=== PATIENT | female | born 1965 | race Caucasian/White ===

== ENCOUNTER 2016-11-27 08:26 | Emergency (ER) | payer OTHER ==
[~2016-11-27] VITALS: Ht 165.1 cm; Wt 81.6 kg
--- NOTE | ~2016-11-27 | EKG ---
[place], [place] ELECTROCARDIOGRAM REPORT NAME: OLGA LIDIA HANKS UNIT #: [id number] ROOM: DOCTOR: ODALIS NULL MD BIRTHDATE: [birth year] DOS: 11/27/2016 ____ FINDINGS: 1. Normal sinus rhythm. 2. Leftward axis. 3. Nonspecific ST-T wave changes. ODALIS NULL MD CM:EKGRPT:ELECTROCARDIOGRAM REPORT [id number] ODALIS NULL MD
[~2016-11-27 08:26] MED LIST: CLARITIN10 MG PO; FIORICET 325 MG1 TAB PO; PERCOCET 325 MG1 TA2 PO; PRILOSEC40 M1 PO; Synthroid,Levo50 MCG PO; TRIMOX500 MG PO; ZOFRAN ODT4 MG SL; ZOFRAN4 MG PO
[2016-11-27 09:27] LABS: BASO % 0.5 % (0.0-1.0); EOS # 0.2 10*3/uL (0.0-0.4); EOS % 1.9 % (1.0-4.0); HEMATOCRIT 37.3 % (37.0-47.0); HEMOGLOBIN 13.1 g/dl (12.0-16.0); LYMPH # 1.9 10*3/uL (1.3-4.4); LYMPH % 23.1 % (27.0-41.0); MEAN CORPUSCULAR HGB CONC 35.1 g/dl (33.0-37.0); MEAN PLATELET VOLUME 9.2 fl (9.6-12.3); MONO # 0.4 10*3/uL (0.1-1.0); MONO % 5.1 % (3.0-9.0); NEUT # 5.6 10*3/uL (2.3-7.9); PLATELET COUNT AUTOMATED 294 10*3/uL (130-400); RED BLOOD COUNT 3.97 10*6/uL (4.10-5.10); RED CELL DISTRI WIDTH 14.9 % (0-14.5); WHITE BLOOD COUNT 8.1 10*3/uL (4.8-10.8)
[2016-11-27 09:36] LABS: INTERNATIONAL NORM RATIO 0.9 (2.0-3.5); PROTHROMBIN TIME 9.8 SECONDS (9.0-12.4)
[2016-11-27 09:42] LABS: ALBUMIN 3.3 gm/dl (3.1-4.5); ALKALINE PHOSPHATASE 96 U/L (45-117); BILIRUBIN, TOTAL 0.6 mg/dl (0.2-1.0); BUN 10 mg/dl (7-24); C-REACTIVE PROTEIN 1.47 MG/DL (0-0.3); CARBON DIOXIDE 24 mmol/L (21-32); CHLORIDE 110 mmol/L (98-107); CPK 35 U/L (26-192); EST GLOM FILT AFRICAN AMERICAN > 60 ml/min; GLUCOSE 96 mg/dL (65-99); POTASSIUM 3.9 mmol/L (3.5-5.1); SGOT/AST 14 IU/L (3-35); SGPT/ALT 18 U/L (12-78); SODIUM 142 mmol/L (136-145); TOTAL PROTEIN 6.8 gm/dL (6.4-8.2)
[2016-11-27 09:51] LABS: CKMB < 0.5 ng/ml (0.5-3.6); TROPONIN I < 0.015 ng/ml (<0.045)
[2016-11-27 13:26] LABS: HEMATOCRIT 39.2 % (37.0-47.0); HEMOGLOBIN 12.8 g/dl (12.0-16.0)
== END 2016-11-27 14:30 | disposition home or self-care (01) ==
LOC: ED 08:26
PROVIDERS: Emergency Medicine
DX: N93.9 Abnormal uterine and vaginal bleeding, unspecified (principal); R06.02 Shortness of breath; R42 Dizziness and giddiness; G43.909 Migraine, unspecified, not intractable, without status migrainosus; Z79.899 Other long term (current) drug therapy

== ENCOUNTER 2016-12-03 17:27 | Emergency (ER) | payer OTHER ==
[~2016-12-03] VITALS: Ht 165.1 cm; Wt 81.6 kg
[2016-12-03] MEDS ORDERED: NORETHINDRONE AC5 MG PO (17:34)
[2016-12-03 18:14] LABS: BASO # 0.1 10*3/uL (0.0-0.1); BASO % 0.5 % (0.0-1.0); EOS # 0.1 10*3/uL (0.0-0.4); EOS % 0.8 % (1.0-4.0); HEMATOCRIT 34.7 % (37.0-47.0); HEMOGLOBIN 12.5 g/dl (12.0-16.0); LYMPH # 2.5 10*3/uL (1.3-4.4); LYMPH % 23.6 % (27.0-41.0); MEAN CELL VOLUME 95.3 fl (81.0-99.0); MEAN CORPUSCULAR HGB 34.3 pg (27.0-31.0); MEAN PLATELET VOLUME 9.8 fl (9.6-12.3); MONO # 0.6 10*3/uL (0.1-1.0); NEUT # 7.4 10*3/uL (2.3-7.9); NEUT % 68.8 % (47.0-73.0); PLATELET COUNT AUTOMATED 334 10*3/uL (130-400); RED BLOOD COUNT 3.64 10*6/uL (4.10-5.10); RED CELL DISTRI WIDTH 15.7 % (0-14.5); WHITE BLOOD COUNT 10.7 10*3/uL (4.8-10.8)
== END 2016-12-04 01:02 | disposition home or self-care (01) ==
LOC: ED 17:27
PROVIDERS: Registered Nurse
DX: R42 Dizziness and giddiness (principal)

== ENCOUNTER 2018-12-15 12:14 | Emergency (ER) | payer OTHER ==
[~2018-12-15] VITALS: Ht 167.6 cm; Wt 83.0 kg
[~2018-12-15 12:14] MED LIST changes: +NORETHINDRONE AC5 MG PO; +PRILOSEC20 M1 PO
[2018-12-15] MEDS ORDERED: PREDNISONE50 MG PO (12:39)
[2018-12-15] MEDS ORDERED: CYCLOBENZAPRINE10 MG PO (12:39)
== END 2018-12-15 14:50 | disposition home or self-care (01) ==
LOC: ED 12:14
DX: S16.1XXA Strain of muscle, fascia and tendon at neck level, initial encounter (principal); M54.5 Low back pain; G43.909 Migraine, unspecified, not intractable, without status migrainosus; Z79.899 Other long term (current) drug therapy; Y93.I9 Activity, other involving external motion; V87.7XXA Person injured in collision between other specified motor vehicles (traffic), initial encounter; Y92.488 Other paved roadways as the place of occurrence of the external cause; Y99.8 Other external cause status

== ENCOUNTER → 2019-07-15 | Outpatient (CLI) | payer OTHER ==
[~2019-07-15] MED LIST changes: +CYCLOBENZAPRINE10 MG PO; +PREDNISONE50 MG PO
== END | disposition home or self-care (01) ==
LOC: RESCLI 01:35
DX: E03.9 Hypothyroidism, unspecified (principal); Z71.89 Other specified counseling; J30.2 Other seasonal allergic rhinitis; E56.9 Vitamin deficiency, unspecified; K21.9 Gastro-esophageal reflux disease without esophagitis; Z79.899 Other long term (current) drug therapy

== ENCOUNTER → 2019-07-16 | Outpatient (CLI) | payer OTHER ==
[2019-07-16 07:53] LABS: BASO % 0.4 % (0.0-1.0); EOS # 0.1 10*3/uL (0.0-0.4); EOS % 1.9 % (1.0-4.0); HEMATOCRIT 42.2 % (37.0-47.0); HEMOGLOBIN 14.5 g/dl (12.0-16.0); LYMPH # 2.2 10*3/uL (1.3-4.4); LYMPH % 31.7 % (27.0-41.0); MEAN CELL VOLUME 92.7 fl (81.0-99.0); MEAN CORPUSCULAR HGB 31.9 pg (27.0-31.0); MEAN CORPUSCULAR HGB CONC 34.4 g/dl (33.0-37.0); MEAN PLATELET VOLUME 9.3 fl (9.6-12.3); MONO # 0.5 10*3/uL (0.1-1.0); MONO % 7.1 % (3.0-9.0); NEUT # 4.1 10*3/uL (2.3-7.9); NEUT % 58.8 % (47.0-73.0); PLATELET COUNT AUTOMATED 300 10*3/uL (130-400); RED BLOOD COUNT 4.55 10*6/uL (4.10-5.10); RED CELL DISTRI WIDTH 15.2 % (0-14.5); WHITE BLOOD COUNT 6.9 10*3/uL (4.8-10.8)
[2019-07-16 08:13] LABS: BUN 18 mg/dl (7-24); CHLORIDE 108 mmol/L (98-107); POTASSIUM 4.1 mmol/L (3.5-5.1); SODIUM 141 mmol/L (136-145)
[2019-07-16 08:26] LABS: ALKALINE PHOSPHATASE 116 U/L (45-117); CHOLESTEROL 173 mg/dL (<200); CREATININE 0.99 mg/dL (0.55-1.02); HDL CHOLESTEROL 46 mg/dl (40-60); LDL CHOLESTEROL 108 mg/dL (9-159); SGOT/AST 10 IU/L (3-35); SGPT/ALT 18 U/L (12-78); TOTAL PROTEIN 7.6 gm/dL (6.4-8.2); TRIGLYCERIDES 93 mg/dl (<150); VLDL CHOLESTEROL 19 mg/dL (6-40)
== END | disposition home or self-care (01) ==
LOC: LAB 05:27
PROVIDERS: Internal Medicine
DX: E03.9 Hypothyroidism, unspecified (principal); Z71.89 Other specified counseling

== ENCOUNTER → 2019-08-24 | Outpatient (CLI) | payer OTHER | END | disposition home or self-care (01) | LOC: US 00:50 | DX: R92.2 Inconclusive mammogram (principal) ==

== ENCOUNTER → 2019-12-08 | Outpatient (CLI) | payer OTHER | END | disposition home or self-care (01) | LOC: RESCLI 00:26 | DX: K21.9 Gastro-esophageal reflux disease without esophagitis (principal); J30.2 Other seasonal allergic rhinitis; E03.9 Hypothyroidism, unspecified; E53.8 Deficiency of other specified B group vitamins; E66.9 Obesity, unspecified; R06.2 Wheezing; R01.1 Cardiac murmur, unspecified; Z85.828 Personal history of other malignant neoplasm of skin; Z13.21 Encounter for screening for nutritional disorder; Z68.30 Body mass index [BMI] 30.0-30.9, adult; Z98.890 Other specified postprocedural states; Z79.899 Other long term (current) drug therapy ==

== ENCOUNTER → 2019-12-12 | Outpatient (CLI) | payer OTHER | END | disposition home or self-care (01) | LOC: CARD 01:28 | DX: R01.1 Cardiac murmur, unspecified (principal) ==

== ENCOUNTER → 2019-12-26 | Outpatient (CLI) | payer OTHER | END | disposition home or self-care (01) | LOC: RAD 11:04 | DX: M17.12 Unilateral primary osteoarthritis, left knee (principal); R60.9 Edema, unspecified ==

== ENCOUNTER → 2020-01-17 | Outpatient (CLI) | payer OTHER ==
[2020-01-17 13:57] LABS: CLARITY SL CLOUDY (CLEAR); COLOR YELLOW (YELLOW)
[2020-01-17 14:05] LABS: BACTERIA 2+; BILIRUBIN NEGATIVE (NEGATIVE); BLOOD 3+ (NEGATIVE); GLUCOSE NEGATIVE (NEGATIVE); KETONE NEGATIVE (NEGATIVE); LEUKO ESTERASE 2+ (NEGATIVE); MUCOUS 1+; NITRITE NEGATIVE (NEGATIVE); RBC TNTC rbc/hpf (0-2); UROBILINOGEN 0.2 E.U./dl (0.2-1.0); WBC 41-50 wbc/hpf (0-5)
== END | disposition home or self-care (01) ==
LOC: LAB 12:45
PROVIDERS: Student in an Organized Health Care Education/Training Program
DX: R39.9 Unspecified symptoms and signs involving the genitourinary system (principal)

== ENCOUNTER → 2020-03-05 | Outpatient (CLI) | payer OTHER | END | disposition home or self-care (01) | LOC: MAMMO 00:46 | PROVIDERS: ATTEND Internal Medicine Nephrology | DX: Z12.31 Encounter for screening mammogram for malignant neoplasm of breast (principal); R01.1 Cardiac murmur, unspecified ==

== ENCOUNTER → 2020-07-05 | Outpatient (CLI) | payer OTHER | END | disposition home or self-care (01) | LOC: RESCLI 11:06 | PROVIDERS: ATTEND Internal Medicine Nephrology | DX: R06.2 Wheezing (principal); J30.2 Other seasonal allergic rhinitis; K21.9 Gastro-esophageal reflux disease without esophagitis; E53.8 Deficiency of other specified B group vitamins; E03.9 Hypothyroidism, unspecified; E55.9 Vitamin D deficiency, unspecified; Z79.899 Other long term (current) drug therapy ==

== ENCOUNTER → 2020-07-09 | Outpatient (CLI) | payer OTHER ==
[2020-07-09 07:55] LABS: BASO % 0.5 % (0.0-1.0); EOS # 0.2 10*3/uL (0.0-0.4); EOS % 2.5 % (1.0-4.0); HEMATOCRIT 43.1 % (37.0-47.0); LYMPH # 2.4 10*3/uL (1.3-4.4); LYMPH % 37.2 % (27.0-41.0); MEAN CELL VOLUME 94.1 fl (81.0-99.0); MEAN CORPUSCULAR HGB 32.8 pg (27.0-31.0); MEAN CORPUSCULAR HGB CONC 34.8 g/dl (33.0-37.0); MEAN PLATELET VOLUME 9.2 fl (9.6-12.3); MONO # 0.4 10*3/uL (0.1-1.0); MONO % 5.9 % (3.0-9.0); NEUT # 3.5 10*3/uL (2.3-7.9); NEUT % 53.7 % (47.0-73.0); PLATELET COUNT AUTOMATED 301 10*3/uL (130-400); RED BLOOD COUNT 4.58 10*6/uL (4.10-5.10); RED CELL DISTRI WIDTH 15.8 % (0-14.5); WHITE BLOOD COUNT 6.4 10*3/uL (4.8-10.8)
[2020-07-09 08:32] LABS: CHLORIDE 107 mmol/L (98-107); POTASSIUM 4.2 mmol/L (3.5-5.1); SODIUM 140 mmol/L (136-145)
[2020-07-09 08:40] LABS: VITAMIN D, 25-HYDROXY 22.8 ng/mL (30-100)
[2020-07-09 08:52] LABS: ALBUMIN 3.7 gm/dl (3.1-4.5); ALKALINE PHOSPHATASE 115 U/L (45-117); BUN 21 mg/dl (7-24); CHOLESTEROL 181 mg/dL (<200); CREATININE 0.93 mg/dL (0.55-1.02); HDL CHOLESTEROL 54 mg/dl (40-60); LDL CHOLESTEROL 105 mg/dL (9-159); SGOT/AST 24 IU/L (3-35); SGPT/ALT 29 U/L (12-78); TOTAL PROTEIN 7.6 gm/dL (6.4-8.2); TRIGLYCERIDES 110 mg/dl (<150); VLDL CHOLESTEROL 22 mg/dL (6-40)
[2020-07-09 09:23] LABS: FREE T4 1.07 ng/dl (0.76-1.46)
== END | disposition home or self-care (01) ==
LOC: LAB 00:12
PROVIDERS: ATTEND Student in an Organized Health Care Education/Training Program
DX: Z00.00 Encounter for general adult medical examination without abnormal findings (principal); E03.9 Hypothyroidism, unspecified; J30.2 Other seasonal allergic rhinitis; K21.9 Gastro-esophageal reflux disease without esophagitis; E55.9 Vitamin D deficiency, unspecified; E53.8 Deficiency of other specified B group vitamins; Z79.899 Other long term (current) drug therapy

== ENCOUNTER → 2020-07-19 | Outpatient (CLI) | payer OTHER | END | disposition home or self-care (01) | LOC: RAD 07:53 | PROVIDERS: ATTEND Internal Medicine Nephrology | DX: R06.2 Wheezing (principal) ==

== ENCOUNTER → 2020-11-21 | Outpatient (CLI) | payer OTHER ==
[2020-11-21 12:47] LABS: BILIRUBIN Negative (Negative); BLOOD Trace-Lysed (Negative); CLARITY Cloudy (Clear); COLOR Yellow (Yellow); GLUCOSE Negative (Negative); KETONE Negative (Negative); LEUKO ESTERASE 3+ (Negative); NITRITE Negative (Negative); PH 6.5 (4.5-8.0)
[2020-11-21 13:02] LABS: WBC TNTC wbc/hpf (0-5)
[2020-11-21 13:03] LABS: BACTERIA 3+
== END | disposition home or self-care (01) ==
LOC: LAB 12:04
PROVIDERS: Student in an Organized Health Care Education/Training Program; ATTEND Internal Medicine Nephrology
DX: N39.0 Urinary tract infection, site not specified (principal)

== ENCOUNTER 2020-12-17 12:02 | Emergency (ER) | payer OTHER ==
[~2020-12-17] VITALS: Ht 167.6 cm; Wt 88.5 kg
[2020-12-17 12:42] LABS: BASO % 0.3 % (0.0-1.0); EOS # 0.1 10*3/uL (0.0-0.4); EOS % 1.4 % (1.0-4.0); HEMATOCRIT 44.4 % (37.0-47.0); LYMPH # 1.7 10*3/uL (1.3-4.4); LYMPH % 26.4 % (27.0-41.0); MEAN CELL VOLUME 89.3 fl (81.0-99.0); MEAN CORPUSCULAR HGB 29.2 pg (27.0-31.0); MEAN CORPUSCULAR HGB CONC 32.7 g/dl (33.0-37.0); MEAN PLATELET VOLUME 8.7 fl (9.6-12.3); MONO # 0.4 10*3/uL (0.1-1.0); MONO % 5.9 % (3.0-9.0); NEUT # 4.3 10*3/uL (2.3-7.9); NEUT % 65.7 % (47.0-73.0); PLATELET COUNT AUTOMATED 281 10*3/uL (130-400); RED BLOOD COUNT 4.97 10*6/uL (4.10-5.10); RED CELL DISTRI WIDTH 13.4 % (0-14.5); WHITE BLOOD COUNT 6.6 10*3/uL (4.8-10.8)
[2020-12-17 12:59] LABS: ALBUMIN 3.7 gm/dl (3.1-4.5); ALKALINE PHOSPHATASE 110 U/L (45-117); BUN 15 mg/dl (7-24); CHLORIDE 108 mmol/L (98-107); POTASSIUM 3.8 mmol/L (3.5-5.1); SGOT/AST 13 IU/L (3-35); SGPT/ALT 22 U/L (12-78); SODIUM 140 mmol/L (136-145); TOTAL PROTEIN 7.6 gm/dL (6.4-8.2)
[2020-12-17 13:00] LABS: TROPONIN I < 0.015 ng/ml (<0.045)
[2020-12-17 13:29] LABS: BILIRUBIN Negative (Negative); BLOOD Negative (Negative); CLARITY Clear (Clear); COLOR Yellow (Yellow); GLUCOSE Negative (Negative); KETONE Negative (Negative); LEUKO ESTERASE Negative (Negative); NITRITE Negative (Negative); SPECIFIC GRAVITY <= 1.005 (1.001-1.030)
== END 2020-12-17 20:04 | disposition home or self-care (01) ==
LOC: ED 12:02
PROVIDERS: Physician Assistant
DX: R07.9 Chest pain, unspecified (principal); Z79.899 Other long term (current) drug therapy

== ENCOUNTER 2021-01-03 17:45 | Emergency (ER) | payer OTHER ==
[~2021-01-03] VITALS: Wt 87.1 kg
== END 2021-01-03 18:52 | disposition home or self-care (01) ==
LOC: ED 17:45
DX: M79.671 Pain in right foot (principal); Z79.899 Other long term (current) drug therapy

== ENCOUNTER → 2021-07-25 | Outpatient (CLI) | payer OTHER | END | disposition home or self-care (01) | LOC: MAMMO 00:15 | PROVIDERS: ATTEND Nurse Practitioner Women's Health | DX: Z12.31 Encounter for screening mammogram for malignant neoplasm of breast (principal) ==

== ENCOUNTER → 2021-08-12 | Outpatient (CLI) | payer OTHER ==
[2021-08-12 16:52] LABS: VITAMIN D, 25-HYDROXY 23.4 ng/mL (30-100)
== END | disposition home or self-care (01) ==
LOC: RESCLI 00:29
PROVIDERS: ATTEND Internal Medicine Nephrology
DX: E03.9 Hypothyroidism, unspecified (principal); E53.8 Deficiency of other specified B group vitamins; J30.2 Other seasonal allergic rhinitis; K21.9 Gastro-esophageal reflux disease without esophagitis; R06.2 Wheezing; E66.9 Obesity, unspecified; E55.9 Vitamin D deficiency, unspecified; Z12.11 Encounter for screening for malignant neoplasm of colon; Z79.899 Other long term (current) drug therapy; Z90.710 Acquired absence of both cervix and uterus; Z98.890 Other specified postprocedural states

== ENCOUNTER 2021-09-04 07:16 | Emergency (ER) | payer OTHER ==
[~2021-09-04] VITALS: Wt 90.7 kg
[2021-09-04] MEDS ORDERED: CYCLOBENZAPRINE10 MG PO (07:44)
[2021-09-04] MEDS ORDERED: PREDNISONE50 MG PO (07:44)
== END 2021-09-04 08:00 | disposition home or self-care (01) ==
LOC: ED 07:16
DX: M54.41 Lumbago with sciatica, right side (principal); M54.42 Lumbago with sciatica, left side; Z79.899 Other long term (current) drug therapy

== ENCOUNTER → 2021-09-06 | Outpatient (CLI) | payer OTHER ==
[2021-09-06 10:55] LABS: BUN 21 mg/dl (7-24); CHLORIDE 110 mmol/L (98-107); CREATININE 0.96 mg/dL (0.55-1.02); SODIUM 141 mmol/L (136-145)
[2021-09-06 11:54] LABS: BILIRUBIN Negative (Negative); BLOOD Negative (Negative); CLARITY Clear (Clear); COLOR Yellow (Yellow); GLUCOSE Negative (Negative); KETONE Negative (Negative); LEUKO ESTERASE 1+ (Negative); NITRITE Negative (Negative); PH 5.5 (4.5-8.0); SPECIFIC GRAVITY 1.025 (1.001-1.030); UROBILINOGEN 0.2 E.U./dl (0.0-1.0)
[2021-09-06 13:32] LABS: MUCOUS TRACE
== END | disposition home or self-care (01) ==
LOC: LAB 10:22
PROVIDERS: Student in an Organized Health Care Education/Training Program; ATTEND Internal Medicine
DX: N20.0 Calculus of kidney (principal)

== ENCOUNTER → 2021-09-09 | Outpatient (CLI) | payer OTHER | END | disposition home or self-care (01) | LOC: CT 00:08 | PROVIDERS: ATTEND Internal Medicine Nephrology | DX: N20.0 Calculus of kidney (principal); R16.1 Splenomegaly, not elsewhere classified ==

== ENCOUNTER → 2021-09-17 | Outpatient (CLI) | payer OTHER ==
[2021-09-17 15:47] LABS: BASO % 0.3 % (0.0-1.0); EOS # 0.1 10*3/uL (0.0-0.4); EOS % 1.2 % (1.0-4.0); HEMATOCRIT 46.7 % (37.0-47.0); LYMPH # 1.9 10*3/uL (1.3-4.4); LYMPH % 19.4 % (27.0-41.0); MEAN CELL VOLUME 88.6 fl (81.0-99.0); MEAN CORPUSCULAR HGB CONC 32.8 g/dl (33.0-37.0); MEAN PLATELET VOLUME 8.7 fl (9.6-12.3); MONO # 0.5 10*3/uL (0.1-1.0); NEUT # 7.2 10*3/uL (2.3-7.9); NEUT % 73.9 % (47.0-73.0); PLATELET COUNT AUTOMATED 318 10*3/uL (130-400); RED BLOOD COUNT 5.27 10*6/uL (4.10-5.10); RED CELL DISTRI WIDTH 13.6 % (0-14.5); WHITE BLOOD COUNT 9.8 10*3/uL (4.8-10.8)
== END | disposition home or self-care (01) ==
LOC: RESCLI 06:44
PROVIDERS: Internal Medicine; ATTEND Internal Medicine
DX: R16.2 Hepatomegaly with splenomegaly, not elsewhere classified (principal); K21.9 Gastro-esophageal reflux disease without esophagitis; E03.9 Hypothyroidism, unspecified; Z79.899 Other long term (current) drug therapy

== ENCOUNTER → 2022-01-02 | Day surgery (SDC) | payer OTHER ==
[~2022-01-02] VITALS: Ht 167.6 cm; Wt 90.7 kg
[2022-01-02 07:33] VITALS: BP 115/66
[2022-01-02 08:30] VITALS: BP 108/50
[2022-01-02 08:45] VITALS: BP 111/54
[2022-01-02 09:00] VITALS: BP 102/57
== END | disposition home or self-care (01) ==
LOC: SDC 12-30 09:30
PROVIDERS: ATTEND Surgery
DX: Z12.11 Encounter for screening for malignant neoplasm of colon (principal); K57.30 Diverticulosis of large intestine without perforation or abscess without bleeding; Z86.010 Personal history of colon polyps; E03.9 Hypothyroidism, unspecified; G43.909 Migraine, unspecified, not intractable, without status migrainosus; Z79.899 Other long term (current) drug therapy

== ENCOUNTER → 2022-03-12 | Outpatient (CLI) | payer OTHER | END | disposition home or self-care (01) | LOC: RESCLI 11:33 | PROVIDERS: ATTEND Student in an Organized Health Care Education/Training Program | DX: K21.9 Gastro-esophageal reflux disease without esophagitis (principal); J30.2 Other seasonal allergic rhinitis; L98.9 Disorder of the skin and subcutaneous tissue, unspecified; E03.9 Hypothyroidism, unspecified; Z79.899 Other long term (current) drug therapy ==

== ENCOUNTER 2022-03-18 04:17 | Inpatient (IN) | payer OTHER ==
[2022-03-18 04:22] VITALS: BP 136/74
[2022-03-18 04:39] LABS: BASO % 0.5 % (0.0-1.0); EOS # 0.1 10*3/uL (0.0-0.4); HEMATOCRIT 42.9 % (37.0-47.0); LYMPH # 2.7 10*3/uL (1.3-4.4); LYMPH % 41.6 % (27.0-41.0); MEAN CELL VOLUME 87.6 fl (81.0-99.0); MEAN CORPUSCULAR HGB CONC 33.1 g/dl (33.0-37.0); MEAN PLATELET VOLUME 8.9 fl (9.6-12.3); MONO # 0.4 10*3/uL (0.1-1.0); MONO % 6.5 % (3.0-9.0); NEUT # 3.2 10*3/uL (2.3-7.9); NEUT % 49.2 % (47.0-73.0); PLATELET COUNT AUTOMATED 230 10*3/uL (130-400); RED CELL DISTRI WIDTH 13.4 % (0-14.5); WHITE BLOOD COUNT 6.6 10*3/uL (4.8-10.8)
[2022-03-18 04:56] LABS: ALKALINE PHOSPHATASE 103 U/L (45-117); BUN 18 mg/dl (7-24); CHLORIDE 110 mmol/L (98-107); CREATININE 0.92 mg/dL (0.55-1.02); POTASSIUM 3.5 mmol/L (3.5-5.1); SGOT/AST 13 IU/L (3-35); SGPT/ALT 19 U/L (12-78); SODIUM 140 mmol/L (136-145); TOTAL PROTEIN 6.8 gm/dL (6.4-8.2)
[2022-03-18 09:51] LABS: CHOLESTEROL 148 mg/dL (<200); LDL CHOLESTEROL 88 mg/dL (9-159); TRIGLYCERIDES 83 mg/dl (<150)
[2022-03-18 10:47] LABS: BILIRUBIN Negative (Negative); BLOOD Negative (Negative); CLARITY Clear (Clear); COLOR Yellow (Yellow); GLUCOSE Negative (Negative); KETONE Negative (Negative); LEUKO ESTERASE Trace (Negative); NITRITE Negative (Negative)
[2022-03-18 11:04] LABS: BACTERIA 4+
[2022-03-18 13:19] VITALS: BP 120/65
[2022-03-18 17:14] VITALS: BP 124/62
[2022-03-18 17:42] VITALS: BP 127/57
[2022-03-18 20:00] VITALS: BP 117/69
[2022-03-19] VITALS: BP 109/56
[2022-03-19 06:17] LABS: BASO % 0.2 % (0.0-1.0); EOS # 0.1 10*3/uL (0.0-0.4); EOS % 1.1 % (1.0-4.0); HEMATOCRIT 41.3 % (37.0-47.0); LYMPH # 2.3 10*3/uL (1.3-4.4); LYMPH % 28.7 % (27.0-41.0); MEAN CORPUSCULAR HGB 32.7 pg (27.0-31.0); MEAN CORPUSCULAR HGB CONC 35.1 g/dl (33.0-37.0); MEAN PLATELET VOLUME 9.2 fl (9.6-12.3); MONO # 0.5 10*3/uL (0.1-1.0); MONO % 6.3 % (3.0-9.0); NEUT # 5.1 10*3/uL (2.3-7.9); NEUT % 63.5 % (47.0-73.0); PLATELET COUNT AUTOMATED 272 10*3/uL (130-400); RED BLOOD COUNT 4.43 10*6/uL (4.10-5.10); RED CELL DISTRI WIDTH 15.2 % (0-14.5); WHITE BLOOD COUNT 8.1 10*3/uL (4.8-10.8)
[2022-03-19 06:30] LABS: BUN 17 mg/dl (7-24); CHLORIDE 113 mmol/L (98-107); SGPT/ALT 19 U/L (12-78); SODIUM 145 mmol/L (136-145)
[2022-03-19 06:33] LABS: ALKALINE PHOSPHATASE 94 U/L (45-117); CREATININE 0.96 mg/dL (0.55-1.02); SGOT/AST 11 IU/L (3-35); TOTAL PROTEIN 6.9 gm/dL (6.4-8.2)
[2022-03-19 07:27] LABS: MEAN CELL VOLUME 93.2 fl (81.0-99.0)
[2022-03-19 08:00] VITALS: BP 115/62
[2022-03-19 12:00] VITALS: BP 130/76
[2022-03-19 16:00] VITALS: BP 108/60
[2022-03-19 20:00] VITALS: BP 120/73
[2022-03-20] VITALS: BP 108/60
[2022-03-20 08:00] VITALS: BP 121/64
[2022-03-20] MEDS ORDERED: PREDNISONE50 MG PO (12:01)
[2022-03-20] MEDS ORDERED: GOOD NEIGHBOR M25 M1 PO (12:01)
[2022-03-20] MEDS ORDERED: ONDANSETRON4 MG SL (12:01)
== END 2022-03-20 15:19 | disposition home or self-care (01) | DRG 149 ==
LOC: ED 04:17 → EDHOLD 09:28 → 5E 09:28
PROVIDERS: Emergency Medicine; Internal Medicine; ADMIT Internal Medicine; ATTEND Internal Medicine
DX: R42 Dizziness and giddiness (principal); K21.9 Gastro-esophageal reflux disease without esophagitis; M54.30 Sciatica, unspecified side; G43.909 Migraine, unspecified, not intractable, without status migrainosus; E87.8 Other disorders of electrolyte and fluid balance, not elsewhere classified; R73.9 Hyperglycemia, unspecified; E03.9 Hypothyroidism, unspecified; M50.30 Other cervical disc degeneration, unspecified cervical region; Z90.49 Acquired absence of other specified parts of digestive tract; Z79.899 Other long term (current) drug therapy

== ENCOUNTER → 2022-03-27 | Outpatient (CLI) | payer OTHER ==
[~2022-03-27] MED LIST changes: +GOOD NEIGHBOR M25 M1 PO; +ONDANSETRON4 MG SL
== END | disposition home or self-care (01) ==
LOC: RESCLI 08:53
PROVIDERS: ATTEND Internal Medicine
DX: F41.9 Anxiety disorder, unspecified (principal); E03.9 Hypothyroidism, unspecified; K21.9 Gastro-esophageal reflux disease without esophagitis; E53.8 Deficiency of other specified B group vitamins; J30.2 Other seasonal allergic rhinitis; R20.2 Paresthesia of skin; R42 Dizziness and giddiness; R11.0 Nausea; Z87.891 Personal history of nicotine dependence; Z72.89 Other problems related to lifestyle; Z82.49 Family history of ischemic heart disease and other diseases of the circulatory system; Z98.890 Other specified postprocedural states; Z79.899 Other long term (current) drug therapy

== ENCOUNTER → 2022-04-07 | Outpatient (CLI) | payer OTHER | END | disposition home or self-care (01) | LOC: RESCLI 01:43 | PROVIDERS: ATTEND Internal Medicine | DX: F41.9 Anxiety disorder, unspecified (principal); R26.89 Other abnormalities of gait and mobility; E03.9 Hypothyroidism, unspecified; Z72.89 Other problems related to lifestyle; Z98.890 Other specified postprocedural states; Z79.899 Other long term (current) drug therapy ==

== ENCOUNTER → 2022-08-28 | Outpatient (CLI) | payer OTHER ==
[2022-08-28 11:38] LABS: BASO % 0.3 % (0.0-1.0); EOS # 0.1 10*3/uL (0.0-0.4); EOS % 1.3 % (1.0-4.0); HEMATOCRIT 47.8 % (37.0-47.0); LYMPH # 1.8 10*3/uL (1.3-4.4); LYMPH % 23.2 % (27.0-41.0); MEAN CELL VOLUME 90.7 fl (81.0-99.0); MEAN PLATELET VOLUME 8.9 fl (9.6-12.3); MONO # 0.4 10*3/uL (0.1-1.0); MONO % 4.8 % (3.0-9.0); NEUT # 5.5 10*3/uL (2.3-7.9); PLATELET COUNT AUTOMATED 286 10*3/uL (130-400); RED BLOOD COUNT 5.27 10*6/uL (4.10-5.10); RED CELL DISTRI WIDTH 13.2 % (0-14.5); WHITE BLOOD COUNT 7.8 10*3/uL (4.8-10.8)
[2022-08-28 12:18] LABS: ALKALINE PHOSPHATASE 113 U/L (46-116); BUN 12 mg/dl (9-23); CHLORIDE 104 mmol/L (98-107); CHOLESTEROL 191 mg/dL (<200); LDL CHOLESTEROL 119 mg/dL (9-159); SGPT/ALT 21 U/L (10-49); TOTAL PROTEIN 7.4 gm/dL (6.0-8.0); TRIGLYCERIDES 141 mg/dl (<150)
== END | disposition home or self-care (01) ==
LOC: RESCLI 00:46
PROVIDERS: Internal Medicine; ATTEND Student in an Organized Health Care Education/Training Program
DX: E03.9 Hypothyroidism, unspecified (principal); K21.9 Gastro-esophageal reflux disease without esophagitis; F41.9 Anxiety disorder, unspecified; R42 Dizziness and giddiness; H93.19 Tinnitus, unspecified ear; J30.2 Other seasonal allergic rhinitis; Z98.890 Other specified postprocedural states; F10.90 Alcohol use, unspecified, uncomplicated; Z79.899 Other long term (current) drug therapy

== ENCOUNTER → 2022-09-02 | Outpatient (CLI) | payer OTHER | END | disposition home or self-care (01) | LOC: CARD 05:06 | PROVIDERS: ATTEND Internal Medicine | DX: R42 Dizziness and giddiness (principal) ==

== ENCOUNTER 2022-10-09 08:33 | Emergency (ER) | payer OTHER ==
[~2022-10-09] VITALS: Ht 167.6 cm; Wt 90.7 kg
[2022-10-09] MEDS ORDERED: PREDNISONE50 MG PO (09:21)
== END 2022-10-09 09:38 | disposition home or self-care (01) ==
LOC: ED 08:33
DX: M54.50 Low back pain, unspecified (principal); R05.9 Cough, unspecified; Z90.49 Acquired absence of other specified parts of digestive tract; Z98.890 Other specified postprocedural states; E03.9 Hypothyroidism, unspecified

== ENCOUNTER → 2022-11-10 | Outpatient (CLI) | payer OTHER | END | disposition home or self-care (01) | LOC: RESCLI 00:51 | PROVIDERS: ATTEND Internal Medicine | DX: Z12.2 Encounter for screening for malignant neoplasm of respiratory organs (principal); Z87.891 Personal history of nicotine dependence; Z79.899 Other long term (current) drug therapy ==

== ENCOUNTER → 2022-11-15 | Outpatient (CLI) | payer OTHER | END | disposition home or self-care (01) | LOC: CT 00:03 | PROVIDERS: ATTEND Student in an Organized Health Care Education/Training Program | DX: Z12.2 Encounter for screening for malignant neoplasm of respiratory organs (principal); J43.9 Emphysema, unspecified; Z87.891 Personal history of nicotine dependence ==

== ENCOUNTER → 2022-11-24 | Outpatient (CLI) | payer OTHER | END | disposition home or self-care (01) | LOC: MAMMO 01:00 | PROVIDERS: ATTEND Nurse Practitioner Women's Health | DX: Z12.31 Encounter for screening mammogram for malignant neoplasm of breast (principal) ==

== ENCOUNTER → 2023-01-09 | Outpatient (CLI) | payer OTHER | END | disposition home or self-care (01) | LOC: RAD 00:41 | PROVIDERS: ATTEND Internal Medicine | DX: M79.672 Pain in left foot (principal) ==

== ENCOUNTER → 2023-04-30 | Outpatient (CLI) | payer OTHER | END | disposition home or self-care (01) | LOC: RAD 02:15 | PROVIDERS: ATTEND Student in an Organized Health Care Education/Training Program | DX: M25.561 Pain in right knee (principal) ==

== ENCOUNTER 2023-09-29 15:42 | Emergency (ER) | payer OTHER ==
[~2023-09-29] VITALS: Ht 167.6 cm; Wt 90.7 kg
[2023-09-29] MEDS ORDERED: AMOX-CLAV 875-1 EACH PO (16:52)
== END 2023-09-29 16:56 | disposition home or self-care (01) ==
LOC: ED 15:42
DX: R04.0 Epistaxis (principal); J32.9 Chronic sinusitis, unspecified; E03.9 Hypothyroidism, unspecified; Z90.49 Acquired absence of other specified parts of digestive tract; Z98.890 Other specified postprocedural states

== ENCOUNTER → 2023-11-26 | Outpatient (CLI) | payer OTHER ==
[~2023-11-26] MED LIST changes: +AMOX-CLAV 875-1 EACH PO
== END | disposition home or self-care (01) ==
LOC: MAMMO 00:15
PROVIDERS: ATTEND Nurse Practitioner Women's Health
DX: N60.02 Solitary cyst of left breast (principal); R92.30 Dense breasts, unspecified; N63.20 Unspecified lump in the left breast, unspecified quadrant

== ENCOUNTER → 2023-12-08 | Outpatient (CLI) | payer OTHER | END | disposition home or self-care (01) | LOC: RESCLI 00:36 | PROVIDERS: ATTEND Internal Medicine | DX: Z12.2 Encounter for screening for malignant neoplasm of respiratory organs (principal); E03.9 Hypothyroidism, unspecified; K21.9 Gastro-esophageal reflux disease without esophagitis; R42 Dizziness and giddiness; E53.8 Deficiency of other specified B group vitamins; J30.2 Other seasonal allergic rhinitis; F10.90 Alcohol use, unspecified, uncomplicated; Z88.8 Allergy status to other drugs, medicaments and biological substances; Z87.891 Personal history of nicotine dependence ==

== ENCOUNTER → 2023-12-09 | Outpatient (CLI) | payer OTHER ==
[2023-12-09 07:48] LABS: BASO % 0.4 % (0.0-1.0); EOS # 0.2 10*3/uL (0.0-0.4); EOS % 2.2 % (1.0-4.0); HEMATOCRIT 43.4 % (37.0-47.0); LYMPH # 2.3 10*3/uL (1.3-4.4); LYMPH % 32.1 % (27.0-41.0); MEAN CELL VOLUME 92.3 fl (81.0-99.0); MEAN CORPUSCULAR HGB 31.1 pg (27.0-31.0); MEAN CORPUSCULAR HGB CONC 33.6 g/dl (33.0-37.0); MEAN PLATELET VOLUME 8.8 fl (9.6-12.3); MONO # 0.4 10*3/uL (0.1-1.0); MONO % 5.7 % (3.0-9.0); NEUT # 4.3 10*3/uL (2.3-7.9); NEUT % 59.5 % (47.0-73.0); PLATELET COUNT AUTOMATED 289 10*3/uL (130-400); RED CELL DISTRI WIDTH 13.7 % (0-14.5); WHITE BLOOD COUNT 7.2 10*3/uL (4.8-10.8)
[2023-12-09 08:20] LABS: ALKALINE PHOSPHATASE 121 U/L (46-116); BUN 18 mg/dl (9-23); CHLORIDE 104 mmol/L (98-107); CHOLESTEROL 182 mg/dL (<200); LDL CHOLESTEROL 113 mg/dL (9-159); POTASSIUM 4.2 mmol/L (3.4-5.1); SGPT/ALT 14 U/L (5-49); TOTAL PROTEIN 7.3 gm/dL (6.0-8.0); TRIGLYCERIDES 119 mg/dl (<150)
[2023-12-09 08:38] LABS: FREE T4 0.99 ng/dl (0.89-1.76)
== END | disposition home or self-care (01) ==
LOC: LAB 01:18
PROVIDERS: ATTEND Student in an Organized Health Care Education/Training Program
DX: E03.9 Hypothyroidism, unspecified (principal)

== ENCOUNTER → 2024-01-22 | Outpatient (CLI) | payer OTHER ==
[2024-01-22 15:24] LABS: FREE T4 1.34 ng/dl (0.89-1.76)
== END | disposition home or self-care (01) ==
LOC: LAB 14:30
PROVIDERS: ATTEND Student in an Organized Health Care Education/Training Program
DX: E03.9 Hypothyroidism, unspecified (principal)

== ENCOUNTER → 2024-02-22 | Outpatient (CLI) | payer OTHER | END | disposition home or self-care (01) | LOC: CT 00:04 | PROVIDERS: ATTEND Student in an Organized Health Care Education/Training Program | DX: Z12.2 Encounter for screening for malignant neoplasm of respiratory organs (principal); Z87.891 Personal history of nicotine dependence; R91.1 Solitary pulmonary nodule ==

== ENCOUNTER → 2024-04-21 | Outpatient (CLI) | payer OTHER | END | disposition home or self-care (01) | LOC: RESCLI 09:43 | PROVIDERS: ATTEND Family Medicine | DX: R22.9 Localized swelling, mass and lump, unspecified (principal); I10 Essential (primary) hypertension; F10.90 Alcohol use, unspecified, uncomplicated; Z88.8 Allergy status to other drugs, medicaments and biological substances; Z98.890 Other specified postprocedural states; Z87.891 Personal history of nicotine dependence; Y90.9 Presence of alcohol in blood, level not specified; Z79.899 Other long term (current) drug therapy ==

== ENCOUNTER → 2024-06-21 | Outpatient (CLI) | payer OTHER ==
[2024-06-21 09:13] LABS: FREE T4 1.45 ng/dl (0.89-1.76)
== END | disposition home or self-care (01) ==
LOC: LAB 02:09
PROVIDERS: Student in an Organized Health Care Education/Training Program; ATTEND Family Medicine
DX: E03.9 Hypothyroidism, unspecified (principal)

== ENCOUNTER → 2024-12-12 | Outpatient (CLI) | payer OTHER | END | disposition home or self-care (01) | LOC: MAMMO 10:00 | PROVIDERS: ATTEND Nurse Practitioner Women's Health | DX: Z12.31 Encounter for screening mammogram for malignant neoplasm of breast (principal); R92.333 Mammographic heterogeneous density, bilateral breasts ==

== ENCOUNTER → 2025-02-06 | Outpatient (CLI) | payer OTHER ==
[2025-02-06 11:02] LABS: BASO # 0.0 10*3/uL (0.0-0.1); BASO % 0.3 % (0.0-1.0); EOS # 0.1 10*3/uL (0.0-0.4); EOS % 1.9 % (1.0-4.0); MEAN CELL VOLUME 95.1 fl (81.0-99.0); MEAN CORPUSCULAR HGB 33.1 pg (27.0-31.0); MEAN PLATELET VOLUME 8.7 fl (9.6-12.3); MONO # 0.4 10*3/uL (0.1-1.0); MONO % 5.3 % (3.0-9.0); NEUT # 4.3 10*3/uL (2.3-7.9); NEUT % 60.8 % (47.0-73.0); NUCLEATED RED BLOOD CELL 0.0 % (0.0-0.0); NUCLEATED RED BLOOD CELL 0.0 10*3/uL (0.0-0.0); PLATELET COUNT AUTOMATED 270 10*3/uL (130-400); RED CELL DISTRI WIDTH 15.4 % (0-14.5)
[2025-02-06 11:25] LABS: BUN 12 mg/dl (9-23); SGPT/ALT 12 U/L (5-49)
== END | disposition home or self-care (01) ==
LOC: LAB 01:28
PROVIDERS: Student in an Organized Health Care Education/Training Program; ATTEND Internal Medicine Endocrinology, Diabetes & Metabolism
DX: E03.9 Hypothyroidism, unspecified (principal)